=== PATIENT | female | born 1975 | race Caucasian/White ===

== ENCOUNTER 2018-02-25 11:51 | Emergency (ER) | payer OTHER ==
[~2018-02-25] VITALS: Ht 162.6 cm; Wt 88.1 kg
[~2018-02-25 11:51] MED LIST: BENZONATATE200 MG PO; FENOFIBRATE145 M1 PO; LANTUS 3 M100 UNITS1 SC; METFORMIN HCL850 MG PO; RAMIPRIL1.25 MG PO; ROBITUSSIN AC,T10 ML PO; TRULICITY1.5 MG/0.5 SC; VENTOLIN HFA18 GM IH; VITAMIN D32000 UNI1 PO
[2018-02-25] MEDS ORDERED: FIORICET 50-301 EAC1 PO (14:26)
[2018-02-25 14:32] VITALS: BP 126/84
== END 2018-02-25 14:33 | disposition home or self-care (01) ==
LOC: EME 11:51
DX: G43.909 Migraine, unspecified, not intractable, without status migrainosus (principal); E11.9 Type 2 diabetes mellitus without complications; Z79.4 Long term (current) use of insulin; Z79.84 Long term (current) use of oral hypoglycemic drugs; Z87.891 Personal history of nicotine dependence; Z88.2 Allergy status to sulfonamides; Z88.1 Allergy status to other antibiotic agents
CPT/HCPCS: 70450; 99281; 99284; J1885